=== PATIENT | female | born 1985 ===

== ENCOUNTER 2021-08-09 08:21 | Inpatient (IN) ==
[2021-08-09] MEDS ORDERED: Metoclopramide 10 MG/2 ML VIAL IVP PRN (08:57)
[2021-08-09] MEDS ORDERED: Naloxone 0.4 MG/ML INJ IVP PRN (08:57)
[2021-08-09] MEDS ORDERED: Famotidine 20 MG/2 ML VIAL IVP PRN (08:57)
[2021-08-09] MEDS ORDERED: miSOPROStoL 25 MCG TABLET PO STA (09:13)
[2021-08-09 09:39] LABS: Basophils % 0.3 %; Eosinophils # 0.1 K/mcL (0.0-0.6); Eosinophils % 0.7 %; Hemoglobin 11.8 g/dL (11.5-15.4); Immature Granulocytes % 0.9 % (0-4); Lymphocytes # 0.9 K/mcL (0.6-4.6); Lymphocytes % 9.2 %; Mean Corpuscular HGB Conc 33.7 g/dL (31.6-35.5); Mean Corpuscular Hemoglobin 29.6 pg (28.0-33.3); Mean Corpuscular Volume 87.7 fL (83.0-100.0); Mean Platelet Volume 9.9 fL (9.4-12.4); Monocytes # 0.5 K/mcL (0.0-1.3); Neutrophils # 8.2 K/mcL (1.6-8.9); Platelet Count 158 K/mcL (140-400); Red Blood Count 3.99 M/mcL (3.82-4.97); Red Cell Distribution Width 15.4 % (11.5-14.5); Segmented Neutrophils % 83.9 %; White Blood Count 9.7 K/mcL (4.3-11.1)
[2021-08-09] MEDS ORDERED: EPHEDrine 50 MG/ML VIAL IVP PRN (09:57)
[2021-08-09] MEDS ORDERED: Epidural Premix (fent/bupiv) 110 ML EP SCH (10:00)
[2021-08-09] MEDS: Ringers Solution, Lactated 1,000 ML IVC SCH ×3 (10:00→21:12)
[2021-08-09 10:13] LABS: Influenza A PCR Negative (Negative); Influenza B PCR Negative (Negative); Resp. Syncytial Virus PCR Negative (Negative)
[2021-08-09 10:14] LABS: SARS-CoV-2 by PCR (In House) Negative (Negative)
[2021-08-09] MEDS ORDERED: Ondansetron 4 MG/2 ML VIAL ONE (13:03)
[2021-08-09 13:24] LABS: Amphetamine Screen,Urine Negative ng/mL (Cutoff=1000); Barbiturate Screen,Urine Negative ng/mL (Cutoff=200); Benzodiazepines Screen,Urine Negative ng/mL (Cutoff=200); Cannabinoid Screen,Urine Negative ng/mL (Cutoff = 50); Cocaine Screen,Urine Negative ng/mL (Cutoff= 300); Opiate Screen,Urine Negative ng/mL (Cutoff=300); Phencyclidine Screen,Urine Negative ng/mL (Cutoff=25)
[2021-08-09] MEDS ORDERED: *HR* Nalbuphine 10 MG/ML AMPUL IV PRN (13:34)
[2021-08-09] MEDS ORDERED: Ondansetron 4 MG/2 ML VIAL IVP PRN (13:34)
[2021-08-09] MEDS ORDERED: Oxytocin 20 units/ LR 1000 mL 20 UNIT/1,000 ML BAG IVC SCH (15:05)
[2021-08-09] MEDS ORDERED: *HR* Ropivacaine/PF 0.5% 20 ML VIAL ONE (23:07)
[2021-08-10] MEDS ORDERED: Oxytocin 20 units/ LR 1000 mL 20 UNIT/1,000 ML BAG IVC ONE (04:29)
[2021-08-10] MEDS ORDERED: Measles/Mumps/Rubella Vacc 0.5 ML VIAL SQ PRN (04:29)
[2021-08-10] MEDS ORDERED: Oxytocin 20 units/ LR 1000 mL 20 UNIT/1,000 ML BAG IVC SCH (04:29)
[2021-08-10] MEDS ORDERED: Lanolin 7 G OINT...G. TP PRN (04:29)
[2021-08-10] MEDS ORDERED: Benzocaine/Menthol 56 GM AEROSOL SPRAY TP PRN (04:29)
[2021-08-10] MEDS ORDERED: Ondansetron ODT 4 MG TAB.RAPDIS SL PRN (04:29)
[2021-08-10] MEDS ORDERED: Rho Immune Globulin 1,500 UNIT SYRINGE IM PRN (04:29)
[2021-08-10] MEDS: Acetaminophen 325 MG TABLET PO SCH ×2 (10:25→21:34)
[2021-08-10] MEDS: Ibuprofen 600 MG TABLET PO SCH ×2 (10:25→21:34)
[2021-08-10] MEDS: Prenatal Vit/FA 1 EACH TABLET PO SCH (10:27)
[2021-08-11] MEDS: Acetaminophen 325 MG TABLET PO SCH (03:51)
[2021-08-11] MEDS: Ibuprofen 600 MG TABLET PO SCH (03:51)
[2021-08-11 04:24] LABS: Basophils # 0.1 K/mcL (0.0-0.2); Basophils % 0.6 %; Eosinophils # 0.1 K/mcL (0.0-0.6); Eosinophils % 1.7 %; Hematocrit 27.4 % (35.3-44.9); Immature Granulocytes % 1.4 % (0-4); Lymphocytes # 1.6 K/mcL (0.6-4.6); Lymphocytes % 18.9 %; Mean Corpuscular HGB Conc 32.5 g/dL (31.6-35.5); Mean Corpuscular Hemoglobin 29.4 pg (28.0-33.3); Mean Corpuscular Volume 90.4 fL (83.0-100.0); Mean Platelet Volume 9.7 fL (9.4-12.4); Monocytes # 0.4 K/mcL (0.0-1.3); Monocytes % 5.3 %; Platelet Count 151 K/mcL (140-400); Red Blood Count 3.03 M/mcL (3.82-4.97); Red Cell Distribution Width 15.7 % (11.5-14.5); Segmented Neutrophils % 72.1 %; White Blood Count 8.3 K/mcL (4.3-11.1)
[2021-08-11 04:25] LABS: Hemoglobin 8.9 g/dL (11.5-15.4)
[2021-08-11] MEDS: Prenatal Vit/FA 1 EACH TABLET PO SCH (08:21)
[2021-08-11 08:28] VITALS: BP 102/68; TEMP 98; O2SAT 99
[2021-08-11 09:40] VITALS: PULSE 84
== END 2021-08-11 13:11 | disposition home or self-care (01) | DRG 768 ==
LOC: 1NENULAB 08:21 → 1NENUOBS 08-10 05:42
PROVIDERS: ADMIT Obstetrics & Gynecology; ATTEND Obstetrics & Gynecology